=== PATIENT | male | born 1960 ===

== ENCOUNTER 2024-10-06 09:10 | Emergency (ER) | payer OTHER ==
[2024-10-06] MEDS: Sodium Chloride 0.9% 10 ML Syringe FLUSH PRN (10:15)
[2024-10-06] MEDS ORDERED: Naloxone 2 MG/2 ML Syringe IVPUSH PRN (10:19)
[2024-10-06] MEDS: Ondansetron 4 MG/2 ML SDV IVPUSH ONE (10:20)
[2024-10-06] MEDS: Ketorolac 15 MG/ML SDV IVPUSH ONE (10:22)
[2024-10-06] MEDS: HYDROmorphone 1 MG/ML Syringe IVPUSH ONE (10:25)
[2024-10-06 10:32] LABS: BASOPHILS ABSOLUTE AUTO 0.03 K/uL (0.02-0.10); BASOPHILS PERCENT AUTO 0.3 % (0.0-0.5); EOSINOPHILS ABSOLUTE AUTO 0.13 K/uL (0.04-0.40); EOSINOPHILS PERCENT AUTO 1.3 % (1.0-5.0); HEMATOCRIT 44.9 % (40.0-54.0); HEMOGLOBIN 15.5 g/dL (13.0-18.0); LYMPHOCYTES ABSOLUTE AUTO 1.22 K/uL (1.50-4.00); LYMPHOCYTES PERCENT AUTO 11.7 % (20.0-40.0); MEAN CORPUSCULAR HEMOGLOBIN 31.4 pg (27.0-32.0); MEAN CORPUSCULAR HGB CONC 34.5 g/dL (31.0-35.0); MEAN CORPUSCULAR VOLUME 91 fL (76-96); MEAN PLATELET VOLUME 9.5 fL (6.0-10.0); MONOCYTES ABSOLUTE AUTO 0.75 K/uL (0.20-0.80); MONOCYTES PERCENT AUTO 7.2 % (3.0-10.0); NEUTROPHILS ABSOLUTE AUTO 8.26 K/uL (2.00-7.50); NEUTROPHILS PERCENT AUTO 79.5 % (45.0-70.0); PLATELET COUNT,PLT 274 K/uL (150-400); RED BLOOD CELL COUNT 4.93 M/uL (4.50-6.50); RED CELL DISTRIBUTION WIDTH 13.6 % (11.0-16.0); WHITE BLOOD CELL COUNT,WBC 10.4 K/uL (4.0-11.0)
[2024-10-06 10:51] LABS: ANION GAP 5.5 mmol/L (5.0-15.0); BUN/CREATININE RATIO 15.8 (6-25); C-REACTIVE PROTEIN 7.9 mg/L (<5.0); CALCIUM 9.2 mg/dL (8.5-10.1); CARBON DIOXIDE,CO2 28.4 mmol/L (21.0-32.0); CREATININE 1.14 mg/dL (0.70-1.30); POTASSIUM,K 4.9 mmol/L (3.5-5.1)
[2024-10-06] MEDS ORDERED: Acetaminophen/HYDROcodone 325-5 MG Tab ONE (11:00)
[2024-10-06 11:22] LABS: APPEARANCE,URINE CLEAR (CLEAR); BILIRUBIN,URINE NEGATIVE (NEGATIVE); COLOR,URINE YELLOW; GLUCOSE,URINE NEGATIVE (NEGATIVE); KETONES,URINE 40 mg/dL (NEGATIVE); LEUKOCYTE ESTERASE,URINE NEGATIVE (NEGATIVE); NITRITE,URINE NEGATIVE (NEGATIVE); OCCULT BLOOD,URINE MODERATE (NEGATIVE); PROTEIN,URINE TRACE mg/dL (NEGATIVE); UROBILINOGEN,URINE 0.2 E.U./dL (0.2-1.0)
[2024-10-06 11:23] LABS: RBC,URINE 20-30 /HPF; WBC,URINE 0-5 /HPF
[2024-10-06] MEDS: HYDROmorphone 1 MG/ML Syringe ONE (11:33)
[2024-10-06] MEDS: Ketorolac 15 MG/ML SDV ONE (11:39)
[2024-10-06] MEDS: Ondansetron 4 MG/2 ML SDV ONE (11:39)
== END 2024-10-06 12:00 | disposition home or self-care (01) ==
LOC: LB.ED 09:10
DX: N13.2 Hydronephrosis with renal and ureteral calculous obstruction (principal)
CPT/HCPCS: 36415; 74176; 80048; 81001; 83605; 83690; 85025; 86140; 96374; 96375; 99284; A9270; J1171; J1885; J2405